=== PATIENT | female | born 1995 | race Caucasian/White ===

== ENCOUNTER 2019-01-07 03:13 | Emergency (ER) | payer OTHER ==
[2019-01-07] MEDS ORDERED: methylPREDNISolone Sodium Succinate 125 MG/2 ML SDV IM STA (03:33)
[2019-01-07] MEDS ORDERED: Albuterol/Ipratropium 3.0-0.5 MG/3 ML Neb Soln NEB ONE (03:35)
--- NOTE | 2019-01-07 04:22 | CR ---
INDICATION: Shortness of breath TECHNIQUE: Chest 2 views. COMPARISON: None FINDINGS: Normal cardiomediastinal silhouette. Patchy opacity in the right upper lobe. No pneumothorax or effusion. Osseous structures intact. IMPRESSION: Right upper lobe pneumonia. Dictated by Fauzia Jimenes MD @ Jan 07 2019 4:20AM Signed by Dr. Fauzia Jimenes @ Jan 07 2019 4:21AM
--- NOTE | 2019-01-07 05:20 | EDM.PDOC ---
ED HPI GENERAL MEDICAL PROBLEM - General Chief Complaint: Respiratory Problem Stated Complaint: INFLUENZA A NOT IMPROVING Time Seen by Provider: 01/07/19 05:17 - History of Present Illness INITIAL COMMENTS - FREE TEXT/NARRATIVE: HISTORY AND PHYSICAL: History of present illness: Patient is 23-year-old white female presents with a concern of recently diagnosed influenza and persistent cough with intermittent fever. Review of systems: As per history of present illness and below otherwise all systems reviewed and negative. Past medical history: As per history of present illness and as reviewed below otherwise noncontributory. Surgical history: As per history of present illness and as reviewed below otherwise noncontributory. Social history: No reported history of drug or alcohol abuse. Family history: As per history of present illness and as reviewed below otherwise noncontributory. Physical exam: HEENT: Atraumatic, normocephalic, pupils reactive, negative for conjunctival pallor or scleral icterus, mucous membranes moist, throat clear, neck supple, nontender, trachea midline. Lungs: Slightly coarse bilaterally right greater than left, breath sounds equal bilaterally, chest nontender. Heart: S1S2, regular, negative for clicks, rubs, or JVD. Abdomen: Soft, nondistended, nontender. Negative for masses or hepatosplenomegaly. Negative for costovertebral tenderness. Pelvis: Stable nontender. Genitourinary: Deferred. Rectal: Deferred. Extremities: Atraumatic, negative for cords or calf pain. Neurovascular unremarkable. Neuro: Awake, alert, oriented. Cranial nerves II through XII unremarkable. Cerebellum unremarkable. Motor and sensory unremarkable throughout. Exam nonfocal. Diagnostics: Chest x-ray Therapeutics: None Impression: #1 influenza #2 pneumonia Definitive disposition and diagnosis as appropriate pending reevaluation and review of above. chest area Pain Score (Numeric/FACES): 5 - Related Data Allergies Allergy/AdvReac Type Severity Reaction Status Date / Time No Known Allergies Allergy Verified 01/07/19 03:22 Home Meds: Home Meds Albuterol [Ventolin HFA] 1 puff INH BID 04/22/15 [History] Fluticasone Propionate [Flovent] 1 puff IH BID 04/22/15 [History] Montelukast [Singulair] 10 mg PO BEDTIME 04/22/15 [History] FLUoxetine [PROzac] 10 mg PO DAILY 01/07/19 [History] Past Medical History HEENT History: Reports: None Cardiovascular History: Reports: None Respiratory History: Reports: None Gastrointestinal History: Reports: None Genitourinary History: Reports: None [employer]ATION[employer] ENG[employer]ER History: Reports: None Musculoskeletal History: Reports: None Neurological History: Reports: None Psychiatric History: Reports: Anxiety, Depression Endocrine/Metabolic History: Reports: None Hematologic History: Reports: None Immunologic History: Reports: None Oncologic (Cancer) History: Reports: None Dermatologic History: Reports: None - Infectious Disease History Infectious Disease History: Reports: None - Past Surgical History Head Surgeries/Procedures: Reports: None HEENT Surgical History: Reports: Oral Surgery GI Surgical History: Reports: Cholecystectomy Social & Family History - Family History Family Medical History: Noncontributory - Tobacco Use Second Hand Smoke Exposure: No - Caffeine Use Caffeine Use: Reports: Coffee - Recreational Drug Use Recreational Drug Use: No ED ROS GENERAL - Review of Systems Review Of Systems: ROS reveals no pertinent complaints other than HPI. ED EXAM, GENERAL - Physical Exam Exam: See Below (See dictation) Course - Vital Signs Last Recorded V/S: Last Vital Signs Temp 36.6 C 01/07/19 03:25 Pulse 111 H 01/07/19 03:25 Resp 18 01/07/19 03:25 BP 110/72 01/07/19 03:25 Pulse Ox 98 01/07/19 03:25 - Orders/Labs/Meds Orders: Active Orders 24 hr Category Date Time Status RT Aerosol Therapy [RC] ASDIRECTED Care 01/07/19 03:35 Active Meds: Medications Discontinued Medications Generic Name Dose Route Start Last Admin Trade Name Diallo PRN Reason Stop Dose Admin Albuterol/Ipratropium 3 ml 01/07/19 03:35 01/07/19 03:43 Duoneb 3.0-0.5 Mg/3 Ml NEB 01/07/19 03:36 3 ml ONETIME ONE Administration Methylprednisolone Sodium Succinate 125 mg 01/07/19 03:33 01/07/19 03:42 Solu-Medrol IM 01/07/19 03:34 125 mg ONETIME STA Administration Departure - Departure Time of Disposition: 05:19 Disposition: Home, Self-Care 01 Condition: Good Clinical Impression: Influenza, Pneumonia - Discharge Information Referrals: Angel Luis Jane MD [Primary Care Provider] - Additional Instructions: The following information is given to patients seen in the emergency department who are being discharged to home. This information is to outline your options for follow-up care. We provide all patients seen in our emergency department with a follow-up referral. The need for follow-up, as well as the timing and circumstances, are variable depending upon the specifics of your emergency department visit. If you don't have a primary care physician on staff, we will provide you with a referral. We always advise you to contact your personal physician following an emergency department visit to inform them of the circumstance of the visit and for follow-up with them and/or the need for any referrals to a consulting specialist. The emergency department will also refer you to a specialist when appropriate. This referral assures that you have the opportunity for followup care with a specialist. All of these measure are taken in an effort to provide you with optimal care, which includes your followup. Under all circumstances we always encourage you to contact your private physician who remains a resource for coordinating your care. When calling for followup care, please make the office aware that this follow-up is from your recent emergency room visit. If for any reason you are refused follow-up, please contact the [facility] emergency department at and asked to speak to the emergency department charge nurse. Azithromycin as prescribed continue Tamiflu continue albuterol inhaler follow- up primary medical doctor as needed as discussed and return as needed as discussed - My Orders Last 24 Hours: My Active Orders 01/07/19 03:35 RT Aerosol Therapy [RC] ASDIRECTED - Assessment/Plan Last 24 Hours: My Active Orders 01/07/19 03:35 RT Aerosol Therapy [RC] ASDIRECTED
[2019-01-07 05:45] VITALS: BP 122/64
== END 2019-01-07 05:35 | disposition home or self-care (01) ==
LOC: MW.ED 03:13
DX: J11.00 Influenza due to unidentified influenza virus with unspecified type of pneumonia (principal); F41.9 Anxiety disorder, unspecified; F32.9 Major depressive disorder, single episode, unspecified
CPT/HCPCS: 71046; 96372; 99285; J2930; 99282; J7620-GY

== ENCOUNTER 2020-05-10 18:06 | Emergency (ER) | payer OTHER ==
[2020-05-10 18:21] VITALS: BP 139/100; PULSE 127
--- NOTE | 2020-05-10 18:45 | EDM.PDOC ---
ED HPI GENERAL MEDICAL PROBLEM - General Chief Complaint: Respiratory Problem Stated Complaint: COVID 19 Time Seen by Provider: 05/10/20 18:09 - History of Present Illness INITIAL COMMENTS - FREE TEXT/NARRATIVE: HISTORY AND PHYSICAL: History of present illness: This 24-year-old female is known to be COVID-19 positive and has asthma. She has been having gradual worsening of shortness of breath. She is 6 days into her symptoms. She has had a mild cough, some runny nose, some sore throat but denies any lack of taste or smell or change in these symptoms. She states that she took multiple doses of her albuterol today and feels like her heart is racing slightly. She wanted to come in for check today. No other associated signs or symptoms. No other modifying, aggravating or alleviating factors. She also reports that her albuterol is out of date at home./. Review of systems: A 10-point review of systems, other than pertinent positives and negatives as stated per HPI, is otherwise negative. Past medical history: As per history of present illness and as reviewed below otherwise noncontributory. Surgical history: As per history of present illness and as reviewed below otherwise noncontributory. Social history: No reported history of drug or alcohol abuse. Family history: As per history of present illness and as reviewed below otherwise noncontributory. Physical exam: VITAL SIGNS: Reviewed. GENERAL: No distress. Is concerned about her condition. HEAD: [No signs of head trauma.] EYES: [Pupils are equal. Extraocular motions intact.] EARS: [Hearing grossly intact.] MOUTH: [Oropharynx is normal.] NECK: [No adenopathy, no JVD.] CHEST: Tachypnea, mild audible wheezes. CARDIAC: Tachycardic rate. Regular rhythm. No appreciable murmur ABDOMEN: [Soft, without detectable tenderness. No sign of distention. No rebound or guarding, and no masses palpated.] MUSCULOSKELETAL: [Good range of motion of all major joints. Extremities without clubbing, cyanosis or edema.] NEUROLOGIC EXAM: [Alert and oriented x 3.] [No focal sensory or motor deficits. ] [ Speech normal.] [ Follows commands.] PSYCHIATRIC: [Mood normal.] SKIN: [No rash or lesions.] Initial Differential Diagnosis & Plan: Differential diagnosis for patient's with COVID-19 include hypoxemia, acute respiratory failure, pneumonia, coinfection with another virus, asthma exacerbation. Given the patient's normal oxygen saturation and appropriate explanation for her tachycardia I will be discharging her home. Given the new research from [place] on COVID-19 treatment I will start the patient on Decadron given her shortness of breath and asthma exacerbation. She does have some mild audible wheezes. No significant tachypnea and a normal oxygen saturation. I have also encouraged the patient to use [id number] zinc and magnesium. I have had good results in the past with asthma exacerbation and viral infection with these agents. These are unlikely to cause harm. I will refill the patient's albuterol and Atrovent and have asked her to take these. Return to the emergency department discussed. - Related Data Allergies Allergy/AdvReac Type Severity Reaction Status Date / Time No Known Allergies Allergy Verified 05/10/20 18:20 Home Meds: Home Meds Albuterol [Ventolin HFA] 1 puff INH BID 04/22/15 [History] Montelukast [Singulair] 10 mg PO BEDTIME 04/22/15 [History] Albuterol Sulfate 2.5 mg IH Q6HR #30 vial.neb 05/10/20 [Rx] Albuterol [Proventil Neb Soln] 1 inh INH ASDIRECTED 05/10/20 [History] DULoxetine [Cymbalta] 20 mg PO DAILY 05/10/20 [History] Ipratropium [Atrovent] 0.5 mg .XX BID #60 neb 05/10/20 [Rx] dexAMETHasone [Decadron] 4 mg PO BID 7 Days #14 tablet 05/10/20 [Rx] Past Medical History HEENT History: Reports: None Cardiovascular History: Reports: None Respiratory History: Reports: Asthma Gastrointestinal History: Reports: None Genitourinary History: Reports: None 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 Musculoskeletal History: Reports: None Neurological History: Reports: None Psychiatric History: Reports: Anxiety, Depression Endocrine/Metabolic History: Reports: None Hematologic History: Reports: None Immunologic History: Reports: None Oncologic (Cancer) History: Reports: None Dermatologic History: Reports: None - Infectious Disease History Infectious Disease History: Reports: None - Past Surgical History Head Surgeries/Procedures: Reports: None HEENT Surgical History: Reports: Oral Surgery GI Surgical History: Reports: Cholecystectomy Social & Family History - Family History Family Medical History: Noncontributory - Tobacco Use Smoking Status *Q: Never Smoker - Caffeine Use Caffeine Use: Reports: Coffee - Recreational Drug Use Recreational Drug Use: No ED ROS GENERAL - Review of Systems Review Of Systems: See Below (Noted) ED EXAM, GENERAL - Physical Exam Exam: See Below (Noted) Course - Vital Signs Last Recorded V/S: Last Vital Signs Temp 96.9 F 05/10/20 18:15 Pulse 127 H 05/10/20 18:15 Resp 19 05/10/20 18:15 BP 139/100 H 05/10/20 18:15 Pulse Ox 99 05/10/20 18:15 - Orders/Labs/Meds Meds: Medications Discontinued Medications Generic Name Dose Route Start Last Admin Trade Name Freq PRN Reason Stop Dose Admin Dexamethasone 10 mg 05/10/20 18:30 Dexamethasone PO 05/10/20 18:31 ONETIME ONE Dexamethasone Confirm 05/10/20 18:46 Dexamethasone Administered 05/10/20 18:47 Dose 10 mg .ROUTE .STK-MED ONE Departure - Departure Time of Disposition: 18:53 Disposition: Home, Self-Care 01 Clinical Impression: COVID-19, Dyspnea, Asthma exacerbation - Discharge Information *PRESCRIPTION DRUG MONITORING PROGRAM REVIEWED*: Not Applicable *COPY OF PRESCRIPTION DRUG MONITORING REPORT IN PATIENT JORGE: Not Applicable Prescriptions: Albuterol Sulfate 2.5 mg IH Q6HR #30 vial.neb Ipratropium [Atrovent] 0.5 mg .XX BID #60 neb dexAMETHasone [Decadron] 4 mg PO BID 7 Days #14 tablet Instructions: Medical Screening Exam, COVID-19: How to Protect Yourself and Others - CDC, Prevent the Spread of COVID-19 if You Are Sick - CDC Referrals: PCP,Unknown [Primary Care Provider] - Forms: ED Department Discharge Additional Instructions: The following information is given to patients seen in the emergency department who are being discharged to home. This information is to outline your options for follow-up care. We provide all patients seen in our emergency department with a follow-up referral. The need for follow-up, as well as the timing and circumstances, are variable depending upon the specifics of your emergency department visit. If you don't have a primary care physician on staff, we will provide you with a referral. We always advise you to contact your personal physician following an emergency department visit to inform them of the circumstance of the visit and for follow-up with them and/or the need for any referrals to a consulting specialist. The emergency department will also refer you to a specialist when appropriate. This referral assures that you have the opportunity for follow-up care with a specialist. All of these measure are taken in an effort to provide you with optimal care, which includes your follow-up. Thank you for coming to the [facility] urgency department for your care today. It was Dr. Cortes's pleasure to take care of you. You have COVID-19. Please follow-up with the respiratory clinic here at our hospital. Return to the emergency department for worsening to have your oxygen saturation checked. Please use the Decadron as prescribed. This is shown to be beneficial in some patients with COVID-19 and breathing difficulties. I also recommend that you take [id number] zinc once daily and [id number] magnesium to help with your asthma exacerbation in your COVID-19 infection. Under all circumstances we always encourage you to contact your private physician who remains a resource for coordinating your care. When calling for follow-up care, please make the office aware that this follow-up is from your recent emergency room visit. If for any reason you are refused follow-up, please contact the [facility] Emergency Department at and asked to speak to the emergency department charge nurse. Sepsis Event Note (ED) - Evaluation Sepsis Screening Result: No Definite Risk - Focused Exam Vital Signs: Vital Signs Temp Pulse Resp BP Pulse Ox 05/10/20 18:15 96.9 F 127 H 19 139/100 H 99
[2020-05-10] MEDS ORDERED: Dexamethasone 10 MG/ML SDV ONE (18:46)
== END 2020-05-10 18:55 | disposition home or self-care (01) ==
LOC: MW.ED 18:06
DX: J45.901 Unspecified asthma with (acute) exacerbation (principal); U07.1 COVID-19; F41.9 Anxiety disorder, unspecified; F32.9 Major depressive disorder, single episode, unspecified; Z79.899 Other long term (current) drug therapy
CPT/HCPCS: 99284; J1100; 99283

== ENCOUNTER 2020-07-01 16:13 | Emergency (ER) | payer OTHER ==
[2020-07-01] MEDS ORDERED: Ketorolac 60 MG/2 ML SDV IM ONE (16:57)
--- NOTE | 2020-07-01 17:11 | EDM.PDOC ---
ED HPI GENERAL MEDICAL PROBLEM - General Chief Complaint: Genitourinary Problem Stated Complaint: back pain Time Seen by Provider: 07/01/20 16:18 Source of Information: Reports: Patient History Limitations: Reports: No Limitations - History of Present Illness INITIAL COMMENTS - FREE TEXT/NARRATIVE: HISTORY AND PHYSICAL: History of present illness: Patient is a 24-year-old female who presents to the ED today with concern of low back pain that is worsened this morning. Patient states she has had the back pain off and on for the past 1 week but this morning was worse than it had been and is having a difficult time with moving. Patient states that she has a harder time when she is bent over to stand up and straighten her low back. Patient denies any trauma or injury of her low back. Patient denies any saddle anesthesia or loss or retention of bowel bladder function. Patient denies fever, chills, chest pain, shortness of breath, or cough. Denies headache, neck stiff ness, change in vision, syncope, or near syncope. Denies nausea, vomiting, abdominal pain, diarrhea, constipation, or dysuria. Has not noted any blood in urine or stool. Patient has been eating and drinking appropriately. Review of systems: As per history of present illness and below otherwise all systems reviewed and negative. Past medical history: As per history of present illness and as reviewed below otherwise noncontributory. Surgical history: As per history of present illness and as reviewed below otherwise noncontributory. Social history: See social history for further information Family history: As per history of present illness and as reviewed below otherwise noncontributory. Physical exam: General: Patient is alert, oriented, and in no acute distress. Patient sitting comfortably on exam table. HEENT: Atraumatic, normocephalic, pupils equal and reactive bilaterally, negative for conjunctival pallor or scleral icterus, mucous membranes moist, TMs normal bilaterally, throat clear, neck supple, nontender, trachea midline. No drooling or trismus noted. No meningeal signs. No hot potato voice noted. Lungs: Clear to auscultation, breath sounds equal bilaterally, chest nontender. Heart: S1S2, regular rate and rhythm without overt murmur Abdomen: Soft, nondistended, nontender. Negative for masses or hepatosplenomegaly. Negative for costovertebral tenderness. Pelvis: Stable nontender. Genitourinary: Deferred. Rectal: Deferred. Skin: Intact, warm, dry. No lesions or rashes noted. Extremities: No obvious deformity of the complete spine. No step-offs, crepitus, or point tenderness to palpation of the complete spine. Patient does have pain with palpation of the left-sided paraspinous muscle of the lumbar spine. Patellar reflux intact bilaterally. Heel/Toe gait intact. Otherwise, atraumatic, negative for cords or calf pain. Neurovascular unremarkable. Neuro: Awake, alert, oriented. Cranial nerves II through XII unremarkable. Cerebellum unremarkable. Motor and sensory unremarkable throughout. Exam nonfocal. Notes: Discussed importance for follow-up with a primary care provider. Voices understanding and is agreeable to plan of care. Denies any further questions or concerns at this time. Diagnostics: UA, Uhcg, lumbar XR Therapeutics: Toradol, Norflex Prescription: Diclofenac, Flexeril Impression: Low back pain Plan: 1. The medication you received today does cause drowsiness, so do not drive for the remaining day. 2. When resting please lay on a flat firm surface. Limit your mobility to prevent muscle stiffness. Get up to ambulate/move around/gentle stretching multiple times throughout the day. May alternate heat and ice to painful areas. 3. Tylenol as needed for back pain. Otherwise, take the prescribed Flexeril and diclofenac as directed. Diclofenac as an anti-inflammatory medication so do not take any additional NSAIDs with this medication, such as naproxen, ibuprofen, or Aleve. Flexeril, this medication may cause drowsiness, so do not take it while driving or needing to be functioning outside of the home. 4. Follow-up with your primary care provider as discussed. Return to the ED as needed and as discussed. Definitive disposition and diagnosis as appropriate pending reevaluation and review of above. Lower bilat back Pain Score (Numeric/FACES): 7 - Related Data Allergies Allergy/AdvReac Type Severity Reaction Status Date / Time No Known Allergies Allergy Verified 05/10/20 18:20 Home Meds: Home Meds Albuterol [Ventolin HFA] 1 puff INH BID 04/22/15 [History] Montelukast [Singulair] 10 mg PO BEDTIME 04/22/15 [History] DULoxetine [Cymbalta] 20 mg PO DAILY 05/10/20 [History] Cyclobenzaprine [Flexeril] 10 mg PO TID PRN #9 tab 07/01/20 [Rx] Diclofenac Sodium [Voltaren] 75 mg PO BIDMEALS PRN #15 tab.cr 07/01/20 [Rx] Past Medical History HEENT History: Reports: None Cardiovascular History: Reports: None Respiratory History: Reports: Asthma Gastrointestinal History: Reports: None Genitourinary History: Reports: None HAND MOLDER MEAT History: Reports: None Musculoskeletal History: Reports: None Neurological History: Reports: None Psychiatric History: Reports: Anxiety, Depression Endocrine/Metabolic History: Reports: None Hematologic History: Reports: None Immunologic History: Reports: None Oncologic (Cancer) History: Reports: None Dermatologic History: Reports: None - Infectious Disease History Infectious Disease History: Reports: Chicken Pox - Past Surgical History Head Surgeries/Procedures: Reports: None HEENT Surgical History: Reports: Oral Surgery Other HEENT Surgeries/Procedures: wisdom teeth GI Surgical History: Reports: Cholecystectomy Social & Family History - Family History Family Medical History: Noncontributory - Caffeine Use Caffeine Use: Reports: Coffee - Recreational Drug Use Recreational Drug Use: No ED ROS GENERAL - Review of Systems Review Of Systems: Comprehensive ROS is negative, except as noted in HPI. ED EXAM, GENERAL - Physical Exam Exam: See Below (see dictation) Course - Vital Signs Last Recorded V/S: Last Vital Signs Temp 97.0 F 07/01/20 16:41 Pulse 86 07/01/20 16:41 Resp 20 07/01/20 16:41 BP 128/82 07/01/20 16:41 Pulse Ox 99 07/01/20 16:41 - Orders/Labs/Meds Labs: Laboratory Tests 07/01/20 07/01/20 Range/Units 16:40 16:40 Urine Color YELLOW Urine Appearance CLEAR Urine pH 6.0 (5.0-8.0) Ur Specific [place] 1.020 (1.001-1.035) Urine Protein NEGATIVE (NEGATIVE) mg/dL Urine Glucose (UA) NEGATIVE (NEGATIVE) mg/dL Urine Ketones NEGATIVE (NEGATIVE) mg/dL Urine Occult Blood NEGATIVE (NEGATIVE) Urine Nitrite NEGATIVE (NEGATIVE) Urine Bilirubin NEGATIVE (NEGATIVE) Urine Urobilinogen 0.2 (<2.0) EU/dL Ur Leukocyte Esterase NEGATIVE (NEGATIVE) Urine HCG, Qual NEGATIVE (NEGATIVE) Meds: Medications Discontinued Medications Generic Name Dose Route Start Last Admin Trade Name Diallo PRN Reason Stop Dose Admin Ketorolac Tromethamine 60 mg 07/01/20 16:57 07/01/20 17:09 Toradol IM 07/01/20 16:58 60 mg ONETIME ONE Administration Orphenadrine Citrate 60 mg 07/01/20 16:57 07/01/20 17:11 Norflex IM 07/01/20 16:58 60 mg ONETIME ONE Administration Departure - Departure Time of Disposition: 17:34 Disposition: Home, Self-Care 01 Clinical Impression: Low back pain Qualifiers: Chronicity: acute Back pain laterality: left Sciatica presence: without sciatica Qualified Code(s): M54.5 - Low back pain - Discharge Information Prescriptions: Cyclobenzaprine [Flexeril] 10 mg PO TID PRN #9 tab PRN Reason: Spasms Diclofenac Sodium [Voltaren] 75 mg PO BIDMEALS PRN #15 tab.cr PRN Reason: Pain Referrals: Yoli Moise [employer] [Primary Care Provider] - Forms: ED Department Discharge Additional Instructions: The following information is given to patients seen in the emergency department who are being discharged to home. This information is to outline your options for follow-up care. We provide all patients seen in our emergency department with a follow-up referral. The need for follow-up, as well as the timing and circumstances, are variable depending upon the specifics of your emergency department visit. If you don't have a primary care physician on staff, we will provide you with a referral. We always advise you to contact your personal physician following an emergency department visit to inform them of the circumstance of the visit and for follow-up with them and/or the need for any referrals to a consulting specialist. The emergency department will also refer you to a specialist when appropriate. This referral assures that you have the opportunity for follow-up care with a specialist. All of these measure are taken in an effort to provide you with optimal care, which includes your follow-up. Under all circumstances we always encourage you to contact your private physician who remains a resource for coordinating your care. When calling for follow-up care, please make the office aware that this follow-up is from your recent emergency room visit. If for any reason you are refused follow-up, please contact the [facility] Emergency Department at and asked to speak to the emergency department charge nurse. [facility] [address] [place] [address] [facility] [address] [place] [address] 1. The medication you received today does cause drowsiness, so do not drive for the remaining day. 2. When resting please lay on a flat firm surface. Limit your mobility to prevent muscle stiffness. Get up to ambulate/move around/gentle stretching multiple times throughout the day. May alternate heat and ice to painful areas. 3. Tylenol as needed for back pain. Otherwise, take the prescribed Flexeril and diclofenac as directed. Diclofenac as an anti-inflammatory medication so do not take any additional NSAIDs with this medication, such as naproxen, ibuprofen, or Aleve. Flexeril, this medication may cause drowsiness, so do not take it while driving or needing to be functioning outside of the home. 4. Follow-up with your primary care provider as discussed. Return to the ED as needed and as discussed. Sepsis Event Note (ED) - Evaluation Sepsis Screening Result: No Definite Risk - Focused Exam Vital Signs: Vital Signs Temp Pulse Resp BP Pulse Ox 07/01/20 16:41 97.0 F 86 20 128/82 99
--- NOTE | 2020-07-01 17:31 | CR ---
Lumbar spine: AP, lateral and cone-down lateral view centered in the lumbosacral junction were obtained. Mild scoliosis is noted. Slight lateral disc space narrowing is noted in L4-5 on the right side. Disks otherwise are maintained. Very minimal scattered endplate osteophytes are seen. Pedicles as well as transverse and spinous processes are intact. Sacroiliac joints are within normal limits. Previous cholecystectomy is noted. Impression: 1. Slight scoliosis and minimal degenerative change as noted above. 2. Prior cholecystectomy. Diagnostic code #2 This report was dictated in MDT
[2020-07-01 19:04] VITALS: BP 126/81; PULSE 80
== END 2020-07-01 17:52 | disposition home or self-care (01) ==
LOC: MW.ED 16:13
DX: M54.5 Low back pain (principal); F41.9 Anxiety disorder, unspecified; F32.9 Major depressive disorder, single episode, unspecified; J45.909 Unspecified asthma, uncomplicated; Z79.899 Other long term (current) drug therapy
CPT/HCPCS: 72100; 81003; 81025; 96372; 99283; J1885; J2360